=== PATIENT | male | born 1970 ===

== ENCOUNTER 2021-07-28 15:02 | Emergency (ER) | payer SELFPAY ==
[2021-07-28 16:57] VITALS: BP 147/93
--- NOTE | 2021-07-28 20:03 | Event Note ---
ED Screening Note ED Screening Note: Patient is a 51-year-old male presents emergency room with complaints of hematochezia that began 4 days ago He has associated diarrhea He states he has severe pain upon having a bowel movement He denies any fever, vomiting, hematemesis Patient denies any past medical history no allergies to medications He denies any past abdominal surgical history He is a heavy alcohol drinker, approximately 4 beers a day This initial assessment/diagnostic orders/clinical plan/treatment(s) is/are subject to change based on patients health status, clinical progression and re- assessment by fellow clinical providers in the ED. Further treatment and workup at subsequent clinical providers discretion. Patient/guardian urged not to elope from the ED as their condition may be serious if not clinically assessed and managed. Initial orders include: Labs
[2021-07-28 20:26] LABS: Hematocrit 52.5 % (35.5-45.6); Hemoglobin 18.1 gm/dl (11.8-15.2); Mean Corpuscular HGB Conc 34 % (32-34); Mean Corpuscular Volume 93 fl (84-94); Platelet Count 258 K/mm3 (140-440); Red Blood Count 5.64 M/mm3 (3.65-5.03); Red Cell Distribution Width 13.4 % (13.2-15.2)
[2021-07-28 20:38] LABS: INR 1.12 (0.87-1.13)
[2021-07-28 20:39] LABS: Partial Thromboplastin Time 35.2 Sec. (24.2-36.6)
[2021-07-28 20:56] LABS: Alanine Aminotransferase 90 units/L (7-56); Albumin 3.2 g/dL (3.9-5); BUN/Creatinine Ratio 24; Blood Urea Nitrogen 12 mg/dL (9-20); Calcium 9.3 mg/dL (8.4-10.2); Hemolysis Index 17
--- NOTE | 2021-07-28 22:27 | Emergency Department Report ---
ED GI Bleed HPI - General Chief complaint: GI Bleed Stated complaint: ANAL BLEEDING Time Seen by Provider: 07/28/21 20:01 Source: patient, old records reviewed (first hospital visit) Mode of arrival: Ambulatory Limitations: Language Barrier - History of Present Illness Initial comments: 51-year-old male with no past medical or abdominal surgical history presents to the hospital complaints to the rectal bleeding and anal pain with bowel movements for the past 4 to 5 days. Patient denies symptoms of constipation. States he is having approximately 3 bowel movements daily. Pain and rectal bleeding occur only with bowel movements. Patient complains of pain in the rectal area that persists 10 minutes after having a bowel movement. He denies loose stools, fever, abdominal cramping/pain, nausea, or vomiting. Last week patient had respiratory/URI symptoms with a negative rapid Covid test. He received a flu shot and medication and symptoms are gradually improving. He does not endorse chest pain or shortness of breath. Patient denies engaging in receptive anal intercourse. Patient has remote history of hemorrhoids many years ago and denies noticing any swelling to the anal area at this time. Patient drinks 4 or more beers daily with increased intake during weekend. Denies history of alcohol withdrawal tremors or seizures. Patient is concerned that his recent flu shot may have caused his current symptoms. He is not vaccinated for Covid - Related Data Previous Rx's Medication Instructions Recorded Last Taken Type Lidocaine/Phenyl/Glycer/Petrol 28 gm TP 6XD PRN #1 tube 07/28/21 Unknown Rx [Preparation H Rapid-Lido Cream] Allergies Allergy/AdvReac Type Severity Reaction Status Date / Time No Known Allergies Allergy Verified 07/28/21 16:57 ED Review of Systems ROS: Stated complaint: ANAL BLEEDING Other details as noted in HPI Comment: All other systems reviewed and negative ED Past Medical Hx - Past Medical History Previous Medical History?: No - Surgical History Past Surgical History?: No - Social History Substance Use Type: Alcohol (daily) - Medications Home Medications: Home Medications Medication Instructions Recorded Confirmed Last Taken Type Lidocaine/Phenyl/Glycer/Petrol 28 gm TP 6XD PRN #1 tube 07/28/21 Unknown Rx [Preparation H Rapid-Lido Cream] ED Physical Exam - General Limitations: Language Barrier - Other Other exam information: General: No acute distress Head: Atraumatic Eyes: normal appearance ENT: Moist mucous membranes Neck: Normal appearance, no midline tenderness Chest: Clear to auscultation bilaterally, patient noted to have intermittent cough CV: Regular rate and rhythm Abdomen: Soft, normal bowel sounds, nontender, nondistended, no rebound or guarding Rectal: No external lesions, hemorrhoids, or noticeable anal fissure. No palpable mass. Brown stool on digital rectal exam. Guaiac negative Back: Normal inspection Extremity: Normal inspection, full range of motion Neuro: Alert O x 3, no facial asymmetry, speech clear, no gross motor sensory deficit Psych: Appropriate behavior Skin: No rash ED Course Vital Signs 07/28/21 16:55 Temperature 100 F H Pulse Rate 89 Respiratory 16 Rate Blood Pressure 147/93 [Left] O2 Sat by Pulse 95 Oximetry ED Medical Decision Making - Lab Data Result diagrams: 07/28/21 20:05 07/28/21 20:05 Lab Results 07/28/21 07/28/21 07/28/21 Range/Units 20:05 20:05 20:05 WBC 11.8 H (4.5-11.0) K/mm3 RBC 5.64 H (3.65-5.03) M/mm3 Hgb 18.1 H (11.8-15.2) gm/dl Hct 52.5 H (35.5-45.6) % MCV 93 (84-94) fl MCH 32 (28-32) pg MCHC 34 (32-34) % RDW 13.4 (13.2-15.2) % Plt Count 258 (140-440) K/mm3 PT 14.9 (12.2-14.9) Sec. INR 1.12 (0.87-1.13) APTT 35.2 (24.2-36.6) Sec. Sodium 133 L (137-145) mmol/L Potassium 4.4 (3.6-5.0) mmol/L Chloride 99.3 (98-107) mmol/L Carbon Dioxide 24 (22-30) mmol/L Anion Gap 14 mmol/L BUN 12 (9-20) mg/dL Creatinine 0.5 L (0.8-1.3) mg/dL Estimated GFR > 60 ml/min BUN/Creatinine Ratio 24 % Glucose 195 H (75-100) mg/dL Calcium 9.3 (8.4-10.2) mg/dL Total Bilirubin 1.40 H (0.1-1.2) mg/dL AST 70 H (5-40) units/L ALT 90 H (7-56) units/L Alkaline Phosphatase 183 H (35-129) units/L Total Protein 8.8 H (6.3-8.2) g/dL Albumin 3.2 L (3.9-5) g/dL Albumin/Globulin Ratio 0.6 % Lipase 88 H (13-60) units/L - Medical Decision Making 51-year-old male presents to the hospital complaining of rectal bleeding and rectal pain with bowel movements for the last 4 to 5 days. Labs do not reveal any signs of anemia or coagulopathy. Patient's electrolytes LFT consistent with daily alcohol/beer intake as reported by patient. At this time it does not appear that patient has any active bleeding on examination. Digital rectal exam revealed light brown stool, without gross blood, and guaiac negative. Abdomen is nontender on examination. Low-grade temp of 100 noted however, patient has resolving URI/viral infection symptoms. At this time there is no indication for admission to the hospital or further imaging. However, stressed importance of follow-up with GI for further examination including possible colonoscopy. Pelletizer Tender used and patient voiced understanding. Patient will be discharged home with hemorrhoid medication to aid with symptom relief. Critical Care Time: No Critical care attestation.: If time is entered above; I have spent that time in minutes in the direct care of this critically ill patient, excluding procedure time. ED Disposition Clinical Impression: Rectal bleeding, Rectal pain, Alcohol abuse, daily use Disposition: HOME / SELF CARE / HOMELESS Is pt being admited?: No Does the pt Need Aspirin: No Condition: Stable Instructions: Alcohol Use Disorder, Rectal Bleeding Additional Instructions: Take the medication as prescribed. Follow-up with your doctor or doctor/clinic provided. Return if symptoms worsen as indicated by your discharge instructions. Barrett el medicamento segn lo prescrito. Seguimiento con magdaleno mdico o mdico / clnica proporcionada. Regrese si los sntomas empeoran segn lo indicado en amanda instrucciones de stephy. Prescriptions: Lidocaine/Phenyl/Glycer/Petrol [Preparation H Rapid-Lido Cream] 28 gm TP 6XD PRN #1 tube PRN Reason: Hemorrhoids Referrals: [facility] [Provider Group] - 3-5 Days () Forms: Accompanied Note Time of Disposition: 22:38 Print Language: MARTINIQUAIS
[2021-07-28 23:56] LABS: Anisocytosis 1+; Platelet Estimate Consistent w Auto; Total Cells Counted 100
== END 2021-07-28 23:00 | disposition home or self-care (01) ==
LOC: ED 15:02
DX: K62.5 Hemorrhage of anus and rectum (principal); K62.89 Other specified diseases of anus and rectum; F10.10 Alcohol abuse, uncomplicated; Z79.899 Other long term (current) drug therapy
CPT/HCPCS: 36415; 80053; 82271; 83690; 85007; 85025; 85610; 85730